=== PATIENT | male | born 1965 | race Caucasian/White ===

== ENCOUNTER 2016-09-03 11:00 | Inpatient (IN) | payer MEDICARE, OTHER ==
[~2016-09-03] VITALS: Ht 172.7 cm; Wt 100.7 kg
--- NOTE | ~2016-09-03 | PN ---
Unit #: [id number] #: [id number] Patient: DEDRICK AVERY [id number] [facility] [address] [place] [address] [id number] MR#: [id number] NAME: DEDRICK AVERY. ROOM: P178 Age: 51 Sex: M Admission Date: 09/03/2016 : 1965 Attending Physician: Sophie Sams M.D. Admitting Physician: Sophie Sams M.D. Primary Care Physician: Primary Care Physician Becka GOLD NOTES DATE OF SERVICE 09/06/2016 DISCUSSION Mr. Avery is a 51-year-old white male who was seen today. Chart was reviewed and case was discussed with the staff. He has been doing fairly well with no agitation or irritability and has been exhibiting some persistent depressive symptoms. Meanwhile, he has been taking the medications and tolerating them fairly well with no reported side effects. MENTAL STATUS EXAMINATION Middle-aged white male who is casually dressed with fair personal hygiene, appears to be in no acute distress or discomfort. He was awake and alert on interaction with intact orientation. His mood is anxious with congruent affect. He denies any homicidal ideations and also denies any auditory or visual hallucinations. His insight and judgment remain slightly impaired. TREATMENT PLAN 1. We will continue him on his current medications and treatment protocol. We will monitor his response to the medications and make further adjustments as needed. 2. We will continue to follow up. Dictated by... Sophie Sams M.D. IAA/emeraldg TD: 09/06/2016 15:07 JOB #: [id number] Unit #: [id number] #: [id number] Patient: DEDRICK AVERY PEAOLEG PROGRESS NOTES Page 1 of 1 X Sophie Sams MD PROGRESS NOTE
--- NOTE | ~2016-09-03 | CO ---
Unit #: [id number] #: [id number] Patient: DEDRICK CLAUDIO [id number] [place] [address] [id number] I MR#: [id number] NAME: DEDRICK CLAUDIO. ROOM: P178 Age: 51 Sex: M Admission Date: 09/03/2016 : 1965 Attending Physician: Sophie Sams M.D. Primary Care Physician: Primary Care Physician No Consultation Date: 09/04/2016 CONSULTATION REPORT HISTORY OF PRESENT ILLNESS Dedrick reports history of hypothyroidism and has been prescribed medication. He also has a history of seizure disorder. He is unable to recall his last seizure. He does report that he has not been taking his medications as prescribed, actually cannot memory when the last time he took the medications. TSH today was 5.29 and his Depakote was less than 10. He is prescribed Depakote 2000 mg b.i.d. and is prescribed Synthroid 112 mcg daily. He has no other complaints. PHYSICAL EXAMINATION CARDIAC: Regular rate and rhythm. No murmurs, gallops, or rubs. RESPIRATORY: Clear to auscultation bilaterally. ASSESSMENT AND PLAN 1. Seizure disorder. We will recheck a Depakote level 2 days prior to dose. 2. Hypothyroidism. We will restart Synthroid at 112 mcg p.o. daily. The patient will follow up with his primary care provider. Dictated by... Obie Sue/jarred TD: 09/05/2016 02:14 JOB #: [id number] CONSULTATION REPORT Page 1 of 1 X LIAN HURTADO APRN X CONSULTATION REPORT
--- NOTE | ~2016-09-03 | A ---
[facility] Nutrition Therapy DATE: 09/08/16 Patient: DEDRICK CLAUDIO Physician: DARRIAN Address: [address] [place] [address] Room/Bed: [address], Zip: [place] [address] Admit Date: 09/03/16 Date of : [birth year] Height: 5 8 Weight: [phone] NUTRITIONAL ASSESSMENT: REASON: Request for large portion entree PMH: Reviewed Anthropometrics: Ht: 68", Wt: 222 lbs, BMI: 33 (stage I obese) Labs: Reviewed Recommendations: Based on the patient's BMI as stated above he is not appropriate for large portion entree per guidelines. Respectfully, Sonia Chisholm RD, LD [facility] cc: client file
--- NOTE | ~2016-09-03 | PN ---
Unit #: [id number] #: [id number] Patient: DEDRICK AVERY [id number] [facility] [address] [place] [address] [id number] I MR#: [id number] NAME: DEDRICK AVERY ROOM: P178 Age: 51 Sex: M Admission Date: 09/03/2016 : 1965 Attending Physician: Sophie Sams M.D. Admitting Physician: Sophie Sams M.D. Primary Care Physician: Primary Care Physician Becka RUBI PROGRESS NOTES DATE OF SERVICE 09/07/2016 DISCUSSION Mr. Avery is a 51-year-old white male who was seen today. Chart was reviewed and case was discussed with the staff. He has been anxious, withdrawn, and rather seclusive to himself. Meanwhile, he has been cooperative with the treatment recommendations and has been taking the medications and tolerating them fairly well with no reported side effects. MENTAL STATUS EXAMINATION Middle-aged white male who is casually dressed with fair personal hygiene, appears to be in no acute distress or discomfort. The patient was awake and alert with impaired attention and concentration. His mood is anxious with a congruent affect. He denies any suicidal or homicidal ideations. His insight and judgment remain slightly impaired. TREATMENT PLAN 1. We will continue him on his current treatment protocol. We will monitor his response to the medications and make further adjustments as needed. 2. We will continue to follow up. Dictated by... Sophie Sams M.D. IAA/bzg TD: 09/08/2016 08:30 JOB #: [id number] [facility] PROGRESS NOTES Page 1 of 1 X Sophie Sams MD PROGRESS NOTE
--- NOTE | ~2016-09-03 | PN ---
Unit #: [id number] #: [id number] Patient: DEDRICK CLAUDIO [id number] [facility] [address] [place] [address] [id number] I MR#: [id number] NAME: DEDRICK CLAUDIO. ROOM: P178 Age: 51 Sex: M Admission Date: 09/03/2016 : 1965 Attending Physician: Sophie Sams M.D. Admitting Physician: Sophie Sams M.D. Primary Care Physician: Primary Care Physician Becka GOLD NOTES DATE 09/05/2016 DISCUSSION Mr. Claudio is a 51-year-old, white male who was seen today and chart was reviewed and case was discussed with the staff. He has been anxious, withdrawn and rather seclusive to himself and has been provided a wheelchair though the patient had a fall and reports increasing anxiety and still having shakes and tremors and detox symptoms. Meanwhile, he has been taking the medication and tolerating them fairly well with no reported side effects. MENTAL STATUS EXAM A middle-aged white male who was casually dressed with fair personal hygiene, appears to be in no acute distress or discomfort. He was awake and alert with impaired attention and concentration. His mood was anxious with congruent affect. His speech was slow and restricted in content. His thought processes were disorganized with some looseness of associations. His insight and judgement remains significantly impaired. TREATMENT PLAN 1. We will continue him on his current medications and treatment protocol. We will monitor his response to the medications and make further adjustments as needed. 2. We will continue to follow up. Dictated by... Lazaro Coffman/nazanin TD: 09/06/2016 03:44 JOB #: [id number] Unit #: [id number] #: [id number] Patient: DEDRICK CLAUDIO ELICIA PROGRESS NOTES Page 1 of 1 X Sophie Sams MD PROGRESS NOTE
--- NOTE | ~2016-09-03 | HP ---
Unit #: [id number] #: [id number] Patient: DEDRICK CLAUDIO [id number] [place] [address] [id number] I MR#: [id number] NAME: DEDRICK CLAUDIO. ROOM: P178 Age: 51 Sex: M Admission Date: 09/03/2016 : 1965 Attending Physician: Sophie Sams M.D. Admitting Physician: Sophie Sams M.D. Primary Care Physician: Primary Care Physician No HISTORY AND PHYSICAL HISTORY OF PRESENT ILLNESS Dedrick is a 51-year-old male admitted on 09/03/2016 to [facility] for detox from alcohol. PAST MEDICAL HISTORY Hypothyroidism, seizure disorder, obesity, type II diabetes, hypertension, hyperlipidemia and GERD. PAST SURGICAL HISTORY Appendectomy, tonsillectomy, bilateral hammertoe repair and a cardiac catheterization. SOCIAL HISTORY He smokes one pack of cigarettes daily, drinks six beers daily, no illegal drug use. He is currently and living alone. FAMILY HISTORY Noncontributory. REVIEW OF SYSTEMS CONSTITUTIONAL: No fever or chills. HEENT: Denies any sore throat, ear pain or runny nose. CARDIOVASCULAR: Denies chest pain, irregular heart rhythm or palpitations. CHEST: Denies shortness of breath or cough. No hemoptysis. GASTROINTESTINAL: Denies nausea, vomiting, diarrhea or chronic constipation. ENDOCRINE: Denies history of increased thirst or urination. No recent significant weight loss or gain. GENITOURINARY: Denies dysuria, frequency, or hematuria. SKIN: Denies any rashes. HEMATOLOGIC: Denies history of increased bleeding or bruising. MUSCULOSKELETAL: Denies any hot, swollen joints. No generalized muscle pain. NEUROLOGIC: Denies problems with vision or speech. No frequent, severe headaches. No numbness, tingling or weakness in any extremities. Denies loss of bladder or bowel control. CURRENT MEDICATIONS 1. Neurontin 2. Ropinirole 3. Depakote Unit #: [id number] #: [id number] Patient: DEDRICK CLAUDIO 4. Seroquel 5. Remeron 6. Levothyroxine 7. Lisinopril 8. Atorvastatin 9. Pantoprazole 10. Furosemide 11. Carbidopa 12. Levodopa 13. Prazosin ALLERGIES Bactrim, latex, penicillin, Geodon, NSAIDS, sulfa, tramadol and Prozac. PHYSICAL EXAMINATION GENERAL: Alert, oriented, in no acute distress. VITAL SIGNS: Blood pressure 136/78, heart rate 84. HEIGHT: 5 foot 8 inches. WEIGHT: 222 pounds. SKIN: Warm and dry without rash or lesion. HEENT: Normocephalic. TMs not viewed. Oral and nasal passages clear. Conjunctivae clear. PERRLA. EOMs intact. NECK: Supple without lymphadenopathy or thyromegaly. HEART: Regular rate and rhythm without murmur. LUNGS: Clear. ABDOMEN: Soft, nontender, without masses or hepatosplenomegaly. : Not done. EXTREMITIES: No evidence of cyanosis, clubbing or edema. Moves all without focal deficit. NEUROLOGICAL: Grossly within normal limits. Cranial Nerves: II: Visual chambers are intact. III, IV AND : Extraocular movements are intact. Pupils are equal, round and reactive to light. V: Facial sensation is grossly normal. VII: Facial movements and expression are normal. VIII: Auditory acuity grossly intact. IX, X: Uvula is midline. Phonation is normal. XI: Patient shrugs shoulders and turns head normally. XII: Tongue protrudes in the midline. Sensory and Motor Function: Sensory and motor sensation is grossly normal. Motor: moves all extremities well. Coordination: Gait is normal. Deep Tendon Reflexes: Intact. IMPRESSION 1. Psychiatric admission. 2. Hypothyroidism. 3. Seizure disorder. 4. GERD. 5. Obesity. 6. Type II diabetes. 7. Hypertension. 8. Hyperlipidemia. RECOMMENDATIONS Psychiatric, per psychiatrist. MEDICAL: I see no contraindications to participating in facility's activities. MEDICAL PROGNOSIS Unit #: [id number] #: [id number] Patient: DEDRICK CLAUDIO Good. MEDICAL CONDITION Stable. Dictated by... Obie Sue/nazanin TD: 09/05/2016 01:09 JOB #: [id number] HISTORY AND PHYSICAL Page 1 of 1 X GENESIS,LIAN ORTIZ X HISTORY AND PHYSICAL
--- NOTE | ~2016-09-03 | PA ---
Unit #: [id number] #: [id number] Patient: DEDRICK AVERY [id number] [facility] [address] [place] [address] [id number] MR#: [id number] NAME: DEDRICK AVERY ROOM: P178 Age: 51 Sex: M Admission Date: 09/03/2016 : 1965 Date of Assessment: Attending Physician: Sophie Sams M.D. Admitting Physician: Sophie Sams M.D. Primary Care Physician: Primary Care Physician No PSYCHIATRIC ASSESSMENT DATE OF SERVICE 09/03/2016. IDENTIFYING DATA Mr. Avery is a 51-year-old single disabled white male, who is a resident of [place], [place], and is very well known to us from previous multiple encounters and was transferred to us from [facility] Emergency Room. CHIEF COMPLAINT "I've been stressed and depressed." HISTORY OF PRESENT ILLNESS Mr. Avery is a 51-year-old white male with history of substance abuse and mood disorder, who brought himself to the emergency room stating that he has been depressed, "I have had some bad thoughts of hurting myself. I'm going to overdose on Seroquel. I started back drinking. I would like to get off alcohol." He stated that people were taking advantage of him where he was renting, "I let the place go and I have been on the streets for about a week, I'm very depressed and I'm hearing voices calling out my names and telling me to hurt myself and things like that." He does report increasing depression, anxiety, irritability, restlessness, feelings of hopelessness and helplessness, and suicidal ideations and auditory hallucinations and as such, a recommendation for inpatient level of care for safety and stabilization was made and the patient was transferred to us. SUBSTANCE ABUSE HISTORY The patient reports history of cannabis and alcohol abuse and alcohol has been his drug of choice, and reports that he has been drinking regularly, and his last drink was a couple of days ago and he was not intoxicated upon presentation. PAST PSYCHIATRIC HISTORY The patient has had a history of multiple inpatient psychiatric hospitalizations over the years [facility], and [facility] and has been diagnosed and treated for mood disorder. Review of the medical records indicate that he is supposed to be on Seroquel and Neurontin, but has been noncompliant with the medication and as such, has been decompensating. Unit #: [id number] #: [id number] Patient: DEDRICK AVERY PAST MEDICAL HISTORY Diabetes mellitus, asthma, diabetic neuropathy, hypothyroidism, and epilepsy. ALLERGIES Bactrim, latex, penicillin, Geodon, NSAIDs, sulfa drugs, tramadol, and Prozac. PERSONAL AND SOCIAL HISTORY A 51-year-old white male, who reports that he is single, disabled, unemployed, and homeless and has poor social support system. MENTAL STATUS EXAMINATION Middle-aged white male, who was casually dressed with fair personal hygiene, appears to be in no acute distress or discomfort. He was awake and alert on interaction with intact orientation to time, place, and person. His mood was anxious and depressed with a congruent affect. His speech was slow and restricted in content. His thought processes were disorganized with some looseness of associations and flight of ideas and suicidal ideations and auditory hallucinations. His insight and judgment remain significantly impaired. DIAGNOSTIC IMPRESSION Psychiatric: Bipolar disorder, most recent episode depressed, recurrent, moderate, without psychotic features and alcohol dependence, moderate. Medical: Diabetes mellitus, diabetic neuropathy, and hypothyroidism. Stressors: Moderate psychosocial stressors. TREATMENT PLAN 1. The patient has presented with a history of substance abuse and mood disorder and has been decompensating and will need inpatient hospitalization for safety and stabilization. We will start him back on his home medications and we will adjust the medications and monitor response. 2. Supportive therapy was provided to the patient. 3. Safe, structured, and nourishing environment will be provided. ESTIMATED LENGTH OF STAY 5 to 7 days. ABILITY TO HELP SELF Limited. WILLINGNESS TO HELP SELF The patient appears to be willing to help self. STRENGTHS 1. Communicative. 2. Cooperative. PROBLEMS 1. Chronic dysphoric symptoms. 2. Chronic chemical dependency. 3. Poor social support system. DISCHARGE CRITERIA This will be contingent upon the patient's ability to show resolution of his depression and anxiety and his ability to stay safe to himself, Unit #: [id number] #: [id number] Patient: DEDRICK AVERY particularly after discharge from the hospital. Dictated by... Lazaro Coffman/jarred TD: 09/04/2016 13:20 JOB #: [id number] PSYCHIATRIC ASSESSMENT Page 1 of 1 X Sophie Sams MD PSYCHIATRIC ASSESSMENT
--- NOTE | ~2016-09-03 | DS ---
Unit #: [id number] #: [id number] [facility]: [facility] [id number] [facility] [address] [place] [address] [id number] MR#: [id number] NAME: DEDRICK CLAUDIO ROOM: P178 Age: 51 Sex: M Admission Date: 09/03/2016 : 1965 Discharge Date: 09/08/2016 Attending Physician: Sophie Sams M.D. Primary Care Physician: Primary Care Physician No DISCHARGE SUMMARY IDENTIFYING DATA Mr. Claudio is a 51-year-old, single, disabled, white male, who is a resident of [place], [place], and is known to us from previous encounter, was self-referred to the hospital on a voluntary basis. DISCHARGE DIAGNOSES Psychiatric: Bipolar disorder, most recent episode depressed, recurrent, moderate, without psychotic features; alcohol dependence, moderate. Medical: Diabetes mellitus, diabetic neuropathy, hypothyroidism. Stressors: Mild psychosocial stressors. HISTORY OF PRESENT ILLNESS Please see initial psychiatric evaluation for details. PAST PSYCHIATRIC HISTORY Please see initial psychiatric evaluation for details. PAST MEDICAL HISTORY Please see initial psychiatric evaluation for details. HOSPITAL COURSE The patient was admitted to the adult chemical dependency unit at [facility] and was oriented to the hospital environment. Routine p.r.n. medications were initiated and started on detox protocol, was also started back on his home medications including his Depakote and Seroquel and was closely monitored. He was taking the medications regularly and was tolerating them fairly well and was able to show a fairly decent therapeutic response with improvement in depression and anxiety, and as such, it was decided that he will be discharged home and will continue treatment on an outpatient basis. DISCHARGE MEDICATIONS Depakote 2000 mg at bedtime for bipolar, Seroquel 100 mg at bedtime for bipolar, Remeron 15 mg at bedtime for depression, Neurontin 600 mg t.i.d. for neuropathy, Synthroid 0.112 mg a day for hypothyroidism, Zestril 2.5 mg a day for hypertension, Lipitor 20 mg a day for dyslipidemia, Protonix 40 mg a day for acid reflux, Lasix 20 mg a day for hypothyroidism, Minipress 2 mg at bedtime for PTSD, Sinemet one tablet t.i.d. for Parkinson disease. DISCHARGE CONDITION Unit #: [id number] #: [id number] Patient: DEDRICK CLAUDIO Stable. PROGNOSIS Fair. Dictated by... Lazaro Coffman/jarred TD: 09/08/2016 07:38 JOB #: [id number] DISCHARGE SUMMARY Page 1 of 1 X Sophie Sams MD X DISCHARGE SUMMARY
--- NOTE | ~2016-09-03 | PN ---
Unit #: [id number] #: [id number] Patient: DEDRICK CLAUDIO [id number] [facility] [address] [place] [address] [id number] MR#: [id number] NAME: DEDRCIK CLAUDIO. ROOM: P178 Age: 51 Sex: M Admission Date: 09/03/2016 : 1965 Attending Physician: Sophie Sams M.D. Admitting Physician: Sophie Sams M.D. Primary Care Physician: Primary Care Physician Becka RBUI PROGRESS NOTES DATE 09/04/2016 DISCUSSION Mr. Claudio is a 51-year-old, white male who was seen today and chart was reviewed and case was discussed with the staff. He has been doing fairly well with no agitation, irritability and has been anxious, withdrawn and seclusive to himself. Meanwhile, he has been cooperative with treatment recommendations. He has been taking medications and tolerating them fairly well with no reported side effects. MENTAL STATUS EXAM Middle-aged white male who was casually dressed with fair personal hygiene, appears to be in no acute distress or discomfort. He was awake and alert with impaired attention and concentration. His mood is anxious with a congruent affect. Her reports having suicidal ideation but denies any homicidal ideation. His insight and judgement remains slightly impaired. TREATMENT PLAN 1. We will continue him on his current medications and treatment protocol. We will monitor his response to the medication and make further adjustments as needed. 2. We will continue to follow up. DISCUSSION Dictated by... Lazaro Coffman/nazanin TD: 09/05/2016 04:17 JOB #: [id number] Unit #: [id number] #: [id number] Patient: DEDRICK CLAUDIO PEAOLEG PROGRESS NOTES Page 1 of 1 X Sophie Sams MD PROGRESS NOTE
[2016-09-04 09:38] LABS: BASOPHIL% 0.6 % (0-2.5); EOSINOPHIL# 0.3 X10e3 (0-0.7); EOSINOPHIL% 3.7 % (0.0-7.0); HEMATOCRIT 45.1 % (38.0-50.0); HEMOGLOBIN 14.7 gm/dL (13.0-16.0); LYMPHOCYTE# 2.3 X10e3 (1.0-3.5); LYMPHOCYTE% 28.4 % (17.0-45.0); MEAN CELL VOLUME 93.1 FL (83-96); MEAN CORPUSCULAR HEMOGLOBIN 30.3 PG (28-34); MEAN CORPUSCULAR HGB CONC 32.6 g/dL (30-36); MEAN PLATELET VOLUME 10.8 FL (6.5-11.5); MONOCYTE# 0.6 X10e3 (0-1.0); NEUTROPHIL# 4.7 X10e3 (1.5-7.1); NEUTROPHIL% 59.3 % (40-75); PLATELET COUNT 163 X10e3 (140-420); RED BLOOD COUNT 4.84 X10e (3.90-5.60); WHITE BLOOD COUNT 7.9 X10e3 (4.0-10.5)
[2016-09-04 09:39] LABS: DIFF IND NO
[2016-09-04 09:47] LABS: ALBUMIN SERUM 3.8 g/dL (3.5-5.0); ALKALINE PHOSPHATASE 76 U/L (32-92); ALT (SGPT) 19 U/L (10-40); AST (SGOT) 22 U/L (10-42); BILIRUBIN,TOTAL 0.2 mg/dL (0.2-2.0); BLOOD UREA NITROGEN 32 mg/dL (9-23); BUN/CREATININE RATIO 26.66; CALCIUM SERUM 9.2 mg/dL (8.4-10.2); CARBON DIOXIDE 25 mmol/L (22-31); CHLORIDE 106 mmol/L (100-111); CREATININE SERUM 1.2 mg/dL (0.6-1.4); DEPAKENE (VALPROIC ACID) <10 ug/mL (50-125); GLOM FILT RATE Estimated 68.6 mL/min (>60); GLUCOSE FASTING 94 mg/dL (70-110); POTASSIUM 4.3 mmol/L (3.5-5.1); PROTEIN TOTAL SERUM 6.6 g/dL (6.0-8.3); SODIUM 140 mmol/L (135-145)
[2016-09-04 09:53] LABS: THYROID STIMULATING HORMONE 5.29 uIU/ml (0.34-5.60)
[2016-09-04 10:00] LABS: FREE THYROXIN (T4) 0.85 ng/dL (0.58-1.64)
[2016-09-06 10:13] LABS: URINE APPEARANCE CLEAR; URINE BILIRUBIN NEG (NEG); URINE BLOOD NEG (NEG); URINE COLOR YELLOW; URINE GLUCOSE NEG (NEG); URINE KETONE NEG (NEG); URINE LEUKOCYTE ESTERASE NEG (NEG); URINE NITRATE NEG (NEG); URINE PROTEIN NEG (NEG); URINE SPECIFIC GRAVITY 1.011 (1.003-1.035); URINE UROBILINOGEN 0.2 MG/DL (NEG)
[2016-09-06 10:38] LABS: AMPHETAMINE NEG (NEG); BARBITURATES NEG (NEG); BENZODIAZEPINES POS (NEG); COCAINE NEG (NEG); MARIJUANA NEG (NEG); OPIATES NEG (NEG); TRICYCLIC ANTIDEPRESSANTS NEG (NEG); U METHADONE NEG (NEG)
== END 2016-09-08 10:05 | DRG 885 ==
LOC: P1E 14:06
PROVIDERS: Psychiatry & Neurology Psychiatry
PROC: HZ2ZZZZ Detoxification Services for Substance Abuse Treatment (ICD-10-PCS; principal; 2016-09-03)
DX: F31.32 Bipolar disorder, current episode depressed, moderate (principal); E11.40 Type 2 diabetes mellitus with diabetic neuropathy, unspecified; R45.851 Suicidal ideations; F10.20 Alcohol dependence, uncomplicated; E03.9 Hypothyroidism, unspecified; Z88.0 Allergy status to penicillin; Z88.2 Allergy status to sulfonamides; Z88.8 Allergy status to other drugs, medicaments and biological substances; Z88.6 Allergy status to analgesic agent; Z91.040 Latex allergy status; Z59.0 Homelessness; G40.909 Epilepsy, unspecified, not intractable, without status epilepticus; K21.9 Gastro-esophageal reflux disease without esophagitis; E66.9 Obesity, unspecified; I10 Essential (primary) hypertension; E78.5 Hyperlipidemia, unspecified
CPT/HCPCS: 80053; 80164; 80307; 81003; 82947; 84439; 84443; 85025